=== PATIENT | male | born 1955 | race African-American/Black ===

== ENCOUNTER 2016-08-09 09:07 | Emergency (ER) | payer MEDICARE | END 2016-08-09 10:14 | disposition home or self-care (01) | LOC: D.ER 09:07 | DX: M25.561 Pain in right knee (principal); F17.200 Nicotine dependence, unspecified, uncomplicated ==

== ENCOUNTER 2016-09-26 22:01 | Emergency (ER) | payer MEDICARE ==
[2016-09-26 22:45] LABS: BASOPHILS 0.1 % (0-2); EOSINOPHILS 0.5 % (0-7); HEMATOCRIT 36.3 % (42.0-54.0); HEMOGLOBIN 12.1 g/dL (13.5-17.5); IMMATURE GRANULOCYTES 0.1 % (0-5); LYMPHOCYTES 24.2 % (15-50); MCH 29.9 pg (26.0-34.0); MCHC 33.3 g/dL (31.0-37.0); MCV 89.6 fL (80.0-100.0); MEAN PLATELET VOLUME 8.6 fL (7.4-10.4); MONOCYTES 9.5 % (2-11); NEUTROPHILS 65.6 % (40-80); PLATELET COUNT 153 10x3/uL (130-400); RBC 4.05 10x6/uL (4.20-6.10); RDW 16.1 % (11.5-14.5); WBC 7.5 10x3/uL (4.8-10.8)
[2016-09-26 22:59] LABS: ALBUMIN 3.2 g/dL (3.4-5.0); ALKALINE PHOSPHATASE 62 U/L (46-116); ALT (SGPT) 30 U/L (10-68); BILIRUBIN - TOTAL 0.45 mg/dL (0.2-1.3); CALC OSMOLALITY 269 mosm/kg (275-300); CALCIUM 8.7 mg/dL (8.5-10.1); CARBON DIOXIDE 31.4 mmol/L (21.0-32.0); CHLORIDE - SERUM 101 mmol/L (98-107); GLUCOSE 85 mg/dL (74-106); PROTEIN - SERUM 7.2 g/dL (6.4-8.2); SODIUM 136 mmol/L (136-145); UREA NITROGEN 11 mg/dL (7-18); eGFR NON AFRICAN AMERICAN 81 mL/min (90-120)
[2016-09-26 23:10] LABS: CHOL - HDL RATIO 1.9 ratio (2.3-4.9); CHOLESTEROL, TOTAL 139 mg/dL (0-200); CKMB 5.4 U/L (0.0-3.6); CREATINE KINASE 430 UL (21-232); HDL CHOLESTEROL 75 mg/dL (32-96); LDL CHOLESTEROL 56 mg/dL (0-100); LDL-HDL RATIO 0.7 ratio (1.5-3.5); TRIGLYCERIDE 44 mg/dL (30-200); TROPONIN-I < 0.017 ng/mL (0.000-0.060)
== END 2016-09-26 23:52 | disposition home or self-care (01) ==
LOC: D.ER 22:01
PROVIDERS: Emergency Medicine
DX: R07.89 Other chest pain (principal); M17.11 Unilateral primary osteoarthritis, right knee; F20.9 Schizophrenia, unspecified; Z91.14 Patient's other noncompliance with medication regimen; F17.200 Nicotine dependence, unspecified, uncomplicated; R00.0 Tachycardia, unspecified; I44.60 Unspecified fascicular block

== ENCOUNTER 2016-09-28 14:49 | Emergency (ER) | payer MEDICARE ==
[2016-09-28 15:26] LABS: BASOPHILS 0.2 % (0-2); HEMATOCRIT 38.2 % (42.0-54.0); HEMOGLOBIN 12.5 g/dL (13.5-17.5); IMMATURE GRANULOCYTES 0.2 % (0-5); LYMPHOCYTES 26.3 % (15-50); MCH 29.8 pg (26.0-34.0); MCHC 32.7 g/dL (31.0-37.0); MONOCYTES 11.9 % (2-11); NEUTROPHILS 60.4 % (40-80); PLATELET COUNT 174 10x3/uL (130-400); RDW 16.2 % (11.5-14.5); WBC 5.9 10x3/uL (4.8-10.8)
[2016-09-28 15:58] LABS: ALBUMIN 3.2 g/dL (3.4-5.0); ALKALINE PHOSPHATASE 60 U/L (46-116); ALT (SGPT) 31 U/L (10-68); BILIRUBIN - TOTAL 0.29 mg/dL (0.2-1.3); CALC OSMOLALITY 276 mosm/kg (275-300); CALCIUM 8.3 mg/dL (8.5-10.1); CARBON DIOXIDE 27.7 mmol/L (21.0-32.0); CHLORIDE - SERUM 103 mmol/L (98-107); CREATININE - SERUM 0.9 mg/dL (0.6-1.3); GLUCOSE 82 mg/dL (74-106); MAGNESIUM - SERUM 1.7 mg/dL (1.8-2.4); POTASSIUM - SERUM 3.9 mmol/L (3.5-5.1); PROTEIN - SERUM 6.8 g/dL (6.4-8.2); SODIUM 140 mmol/L (136-145); UREA NITROGEN 9 mg/dL (7-18); eGFR NON AFRICAN AMERICAN > 90 mL/min (90-120)
[2016-09-28 16:33] LABS: APPEARANCE CLEAR (CLEAR); BILIRUBIN NEGATIVE (NEGATIVE); COLOR YELLOW (YELLOW); GLUCOSE NEGATIVE (NEGATIVE); KETONE NEGATIVE (NEGATIVE); LEUKOCYTE ESTERASE NEGATIVE (NEGATIVE); NITRITE NEGATIVE (NEGATIVE); PROTEIN NEGATIVE (NEGATIVE); UROBILINOGEN NORMAL (NORMAL)
[2016-09-28 19:06] LABS: UDS - AMPHET NEGATIVE QUAL (NEGATIVE); UDS - BARB NEGATIVE QUAL (NEGATIVE); UDS - BENZO NEGATIVE QUAL (NEGATIVE); UDS - COCAINE NEGATIVE QUAL (NEGATIVE); UDS - METH NEGATIVE QUAL (NEGATIVE); UDS - OPIATE POSITIVE QUAL (NEGATIVE); UDS - PCP NEGATIVE QUAL (NEGATIVE); UDS - THC NEGATIVE QUAL (NEGATIVE)
== END 2016-09-28 20:20 | disposition home or self-care (01) ==
LOC: D.ER 14:49
PROVIDERS: Emergency Medicine; Nurse Practitioner Acute Care
DX: F10.10 Alcohol abuse, uncomplicated (principal); M17.11 Unilateral primary osteoarthritis, right knee; F17.200 Nicotine dependence, unspecified, uncomplicated; I45.10 Unspecified right bundle-branch block

== ENCOUNTER 2016-10-20 11:00 | Emergency (ER) | payer MEDICARE | END 2016-10-20 11:36 | disposition home or self-care (01) | LOC: D.ER 11:00 | DX: M25.561 Pain in right knee (principal); M76.9 Unspecified enthesopathy, lower limb, excluding foot; M25.461 Effusion, right knee; Z91.14 Patient's other noncompliance with medication regimen ==

== ENCOUNTER 2016-10-29 10:49 | Emergency (ER) | payer MEDICARE | END 2016-10-29 12:09 | disposition home or self-care (01) | LOC: D.ER 10:49 | DX: M25.561 Pain in right knee (principal); M25.461 Effusion, right knee; F17.200 Nicotine dependence, unspecified, uncomplicated ==

== ENCOUNTER 2016-11-23 13:14 | Emergency (ER) | payer MEDICARE | END 2016-11-23 14:39 | disposition left against medical advice (07) | LOC: D.ER 13:14 | DX: M25.561 Pain in right knee (principal) ==

== ENCOUNTER 2016-12-02 11:53 | Emergency (ER) | payer MEDICARE | END 2016-12-02 14:09 | disposition home or self-care (01) | LOC: D.ER 11:53 | DX: M25.561 Pain in right knee (principal); F17.200 Nicotine dependence, unspecified, uncomplicated ==

== ENCOUNTER 2016-12-23 08:50 | Emergency (ER) | payer MEDICARE | END 2016-12-23 10:15 | disposition home or self-care (01) | LOC: D.ER 08:50 | DX: G89.29 Other chronic pain (principal); Z76.0 Encounter for issue of repeat prescription ==

== ENCOUNTER 2017-09-14 11:52 | Emergency (ER) | payer MEDICARE | END 2017-09-14 12:47 | disposition home or self-care (01) | LOC: D.ER 11:52 | DX: M25.561 Pain in right knee (principal); M25.461 Effusion, right knee; F17.200 Nicotine dependence, unspecified, uncomplicated ==

== ENCOUNTER 2018-01-19 07:49 | Emergency (ER) | payer MEDICARE ==
[~2018-01-19] VITALS: Ht 172.7 cm; Wt 86.4 kg
[2018-01-19 08:04] VITALS: Ht 172.7 cm; Wt 86.4 kg
[2018-01-19] MEDS ORDERED: METOPROLOL TART25 MG PO (08:07)
[2018-01-19] MEDS ORDERED: NIFEDIPINE30 MG/BOT1 PO (08:07)
[2018-01-19] MEDS ORDERED: ZOLOFT50 MG PO (08:08)
[2018-01-19] MEDS ORDERED: RISPERDAL4 MG PO (08:08)
[2018-01-19] MEDS ORDERED: BENZTROPINE MESY2 MG PO (08:09)
[2018-01-19] MEDS ORDERED: BAYER CHEWABLE81 MG PO (08:09)
[2018-01-19] MEDS ORDERED: ULTRAM50 MG PO (08:09)
[2018-01-19] MEDS ORDERED: CATAPRES0.1 MG PO (08:09)
[2018-01-19] MEDS ORDERED: ZESTRIL40 MG PO (08:10)
[2018-01-19] MEDS ORDERED: HYDROCHLOROTHIA25 MG PO (08:10)
[2018-01-19] MEDS ORDERED: NORCO 10-325 TA1 TAB (08:11)
[2018-01-19] MEDS ORDERED: ACETAMINOPHEN500 M1 PO (09:53)
[2018-01-19] MEDS ORDERED: MEDROL DOSE PACK4 MG PO (09:53)
[2018-01-19] MEDS ORDERED: SKELAXIN800 MG PO (09:53)
[2018-01-19 10:18] VITALS: BP 160/088
== END 2018-01-19 10:19 | disposition home or self-care (01) ==
LOC: D.ER 07:49
DX: M25.561 Pain in right knee (principal); M25.461 Effusion, right knee; M17.11 Unilateral primary osteoarthritis, right knee; F17.200 Nicotine dependence, unspecified, uncomplicated; I10 Essential (primary) hypertension

== ENCOUNTER 2018-01-26 14:19 | Emergency (ER) | payer MEDICARE ==
[~2018-01-26] VITALS: Ht 172.7 cm; Wt 86.4 kg
[~2018-01-26 14:19] MED LIST: ACETAMINOPHEN500 M1 PO; BAYER CHEWABLE81 MG PO; BENZTROPINE MESY2 MG PO; CATAPRES0.1 MG PO; HYDROCHLOROTHIA25 MG PO; MEDROL DOSE PACK4 MG PO; METOPROLOL TART25 MG PO; NIFEDIPINE30 MG/BOT1 PO; NORCO 10-325 TA1 TAB; RISPERDAL4 MG PO; SKELAXIN800 MG PO; ULTRAM50 MG PO; ZESTRIL40 MG PO; ZOLOFT50 MG PO
[2018-01-26 14:37] VITALS: Ht 172.7 cm; Wt 86.4 kg
[2018-01-26 15:15] LABS: BASOPHILS 0.3 % (0-2); EOSINOPHILS 1.1 % (0-7); HEMATOCRIT 42.7 % (42.0-54.0); HEMOGLOBIN 14.6 g/dL (13.5-17.5); IMMATURE GRANULOCYTES 0.1 % (0-5); LYMPHOCYTES 24.1 % (15-50); MCH 31.6 pg (26.0-34.0); MCHC 34.2 g/dL (31.0-37.0); MCV 92.4 fL (80.0-100.0); MEAN PLATELET VOLUME 8.8 fL (7.4-10.4); MONOCYTES 10.9 % (2-11); NEUTROPHILS 63.5 % (40-80); PLATELET COUNT 156 10x3/uL (130-400); RBC 4.62 10x6/uL (4.20-6.10); RDW 14.5 % (11.5-14.5); WBC 7.9 10x3/uL (4.8-10.8)
[2018-01-26 15:16] LABS: UDS - AMPHET NEGATIVE QUAL (NEGATIVE); UDS - BARB NEGATIVE QUAL (NEGATIVE); UDS - BENZO NEGATIVE QUAL (NEGATIVE); UDS - COCAINE NEGATIVE QUAL (NEGATIVE); UDS - OPIATE NEGATIVE QUAL (NEGATIVE); UDS - PCP NEGATIVE QUAL (NEGATIVE); UDS - THC NEGATIVE QUAL (NEGATIVE)
[2018-01-26 15:33] LABS: APPEARANCE CLEAR (CLEAR); COLOR YELLOW (YELLOW); NITRITE NEGATIVE (NEGATIVE); SPECIFIC GRAVITY 1.025 (1.005-1.020)
[2018-01-26 15:34] LABS: BACTERIA FEW /hpf (NONE SEEN); BILIRUBIN NEGATIVE (NEGATIVE); EPITHELIAL CELLS 0-5 /hpf (0-5); GLUCOSE NEGATIVE (NEGATIVE); KETONE NEGATIVE (NEGATIVE); MUCUS <1+ /lpf (NONE SEEN); PROTEIN TRACE mg/dL (NEGATIVE); RED CELLS - URINE RARE /hpf (0-5)
[2018-01-26 15:39] LABS: ALBUMIN 3.4 g/dL (3.4-5.0); ANION GAP 10.9 mmol/L (8-16); BILIRUBIN - TOTAL 0.49 mg/dL (0.2-1.3); CARBON DIOXIDE 29.9 mmol/L (21.0-32.0); CREATININE - SERUM 1.2 mg/dL (0.6-1.3); POTASSIUM - SERUM 3.8 mmol/L (3.5-5.1); PROTEIN - SERUM 7.5 g/dL (6.4-8.2)
[2018-01-26 22:03] VITALS: BP 154/87
== END 2018-01-26 22:55 | disposition other institution (70) ==
LOC: D.ER 14:19
PROVIDERS: Family Medicine
DX: R44.1 Visual hallucinations (principal); R44.0 Auditory hallucinations; Z91.14 Patient's other noncompliance with medication regimen; I10 Essential (primary) hypertension; Z86.59 Personal history of other mental and behavioral disorders; F17.200 Nicotine dependence, unspecified, uncomplicated

== ENCOUNTER 2018-02-01 14:02 | Inpatient (IN) | payer MEDICARE ==
[~2018-02-01] VITALS: Ht 172.7 cm; Wt 88.0 kg
--- NOTE | ~2018-02-01 | CN ---
PATIENT NAME:RADHIKA JOSEPH MEDICAL RECORD: [id number] : 55 LOCATION:[id number] ADMIT DATE: 02/01/18 ACCOUNT: [id number] CONSULTING PHYSICIAN: CRISTIANO PEREZ MD REFERRING PHYSICIAN: LORI AGUILAR MD DATE OF CONSULTATION: 02/02/2018 IDENTIFYING DATA: The patient is 62 years old and he is admitted to the hospital on a voluntary basis. CHIEF COMPLAINT: Abdominal hernia. HISTORY OF PRESENT ILLNESS: The patient apparently felt bloated and was known to have a very large abdominal hernia, is not strangulated and he does not have an acute abdomen, but he does not want to have the surgery. I am not sure I understand exactly why, but it has something to do with him just wanting to go back to [facility] and not have the surgery. It does not make very much cohesive sense, but that is probably just consistent with his diagnosis. He denies that he would seek to harm himself or others and he is clearly calm and not agitated, but he does report hearing hallucinations. He says he is medication compliant and denies any recent use of drugs or alcohol. MENTAL STATUS EXAMINATION: The patient is awake, alert and oriented to person, place, time and situation. His mood is flat. His affect is generally congruent. Memory, concentration, and abstraction abilities are mildly impaired. He has active auditory hallucinations, but no thoughts of harming himself or others. ASSESSMENT: Schizophrenia. PLAN: The patient does not have a guardian or power of insurance defense attorney that is known. He says he does not have one and there is none known at this point. He was being treated for an acute psychotic break at [facility] prior to being sent here. I recommended he have the surgery. He has declined. He is able to explain the basic facts of the situation, sufficiently to say that there is certainly no grounds for trying to force him to have a surgery that is not emergent and so I would recommend that he be transferred back to [facility], maintained on current psych medications and scheduled for followup appointment as an outpatient with the surgeon and he may be more amenable to having the surgery once he is no longer in the middle of an acute psychotic episode. TRANSINT:[id number] Voice Confirmation ID: [id number] DOCUMENT ID: [id number] CRISTIANO PEREZ MD at 1341 CC: [id number] DICTATION DATE: 02/02/18 1542 MANAGER OF NETWORK: 02/02/18 1554 ADM IN [place] [id number] [facility], [facility]
[2018-02-01 14:48] LABS: BASOPHILS 0.4 % (0-2); EOSINOPHILS 1.2 % (0-7); HEMATOCRIT 43.1 % (42.0-54.0); HEMOGLOBIN 14.7 g/dL (13.5-17.5); IMMATURE GRANULOCYTES 0.1 % (0-5); LYMPHOCYTES 27.7 % (15-50); MCH 31.3 pg (26.0-34.0); MCHC 34.1 g/dL (31.0-37.0); MCV 91.7 fL (80.0-100.0); MEAN PLATELET VOLUME 9.8 fL (7.4-10.4); MONOCYTES 11.5 % (2-11); NEUTROPHILS 59.1 % (40-80); PLATELET COUNT 192 10x3/uL (130-400); RDW 13.7 % (11.5-14.5); WBC 7.5 10x3/uL (4.8-10.8)
[2018-02-01 15:08] LABS: ALBUMIN 3.1 g/dL (3.4-5.0); ANION GAP 5.3 mmol/L (8-16); BILIRUBIN - TOTAL 0.24 mg/dL (0.2-1.3); CALCIUM 9.1 mg/dL (8.5-10.1); CARBON DIOXIDE 35.7 mmol/L (21.0-32.0); CREATININE - SERUM 1.1 mg/dL (0.6-1.3); PROTEIN - SERUM 7.2 g/dL (6.4-8.2)
[2018-02-01 15:41] LABS: INR 1.99 (0.85-1.17)
[2018-02-01 22:57] VITALS: BP 187/99
[2018-02-01 23:34] VITALS: BP 187/99; BMI 29.5
[2018-02-02 05:41] VITALS: BP 157/71
[2018-02-02 09:20] VITALS: BP 118/74
[2018-02-02 09:58] LABS: BASOPHILS 0.2 % (0-2); EOSINOPHILS 1.2 % (0-7); HEMATOCRIT 45.9 % (42.0-54.0); HEMOGLOBIN 15.9 g/dL (13.5-17.5); IMMATURE GRANULOCYTES 0.1 % (0-5); LYMPHOCYTES 12.5 % (15-50); MCH 31.8 pg (26.0-34.0); MCHC 34.6 g/dL (31.0-37.0); MCV 91.8 fL (80.0-100.0); MEAN PLATELET VOLUME 9.3 fL (7.4-10.4); MONOCYTES 15.3 % (2-11); NEUTROPHILS 70.7 % (40-80); PLATELET COUNT 194 10x3/uL (130-400); RDW 13.9 % (11.5-14.5); WBC 8.4 10x3/uL (4.8-10.8)
[2018-02-02 10:07] LABS: CALC OSMOLALITY 269 mosm/kg (275-300); CARBON DIOXIDE 30.2 mmol/L (21.0-32.0); CHLORIDE - SERUM 100 mmol/L (98-107); CREATININE - SERUM 0.9 mg/dL (0.6-1.3); GLUCOSE 79 mg/dL (74-106); POTASSIUM - SERUM 4.8 mmol/L (3.5-5.1); SODIUM 135 mmol/L (136-145); UREA NITROGEN 14 mg/dL (7-18); eGFR NON AFRICAN AMERICAN > 90 mL/min (90-120)
[2018-02-02 12:30] VITALS: Ht 172.7 cm; Wt 88.0 kg
[2018-02-02 20:00] VITALS: BP 196/102
[2018-02-03] VITALS: BP 198/106
[2018-02-03 02:03] VITALS: BP 142/80
[2018-02-03 04:00] VITALS: BP 142/85
[2018-02-03 05:54] LABS: CALC OSMOLALITY 269 mosm/kg (275-300); CALCIUM 8.6 mg/dL (8.5-10.1); CARBON DIOXIDE 28.4 mmol/L (21.0-32.0); CHLORIDE - SERUM 102 mmol/L (98-107); CREATININE - SERUM 0.9 mg/dL (0.6-1.3); GLUCOSE 94 mg/dL (74-106); POTASSIUM - SERUM 4.3 mmol/L (3.5-5.1); SODIUM 135 mmol/L (136-145); UREA NITROGEN 13 mg/dL (7-18); eGFR NON AFRICAN AMERICAN > 90 mL/min (90-120)
[2018-02-03 06:21] LABS: BASOPHILS 0.4 % (0-2); HEMATOCRIT 41.8 % (42.0-54.0); HEMOGLOBIN 14.1 g/dL (13.5-17.5); IMMATURE GRANULOCYTES 0.4 % (0-5); MCH 30.7 pg (26.0-34.0); MCHC 33.7 g/dL (31.0-37.0); MCV 90.9 fL (80.0-100.0); MEAN PLATELET VOLUME 9.9 fL (7.4-10.4); MONOCYTES 16.8 % (2-11); NEUTROPHILS 55.4 % (40-80); PLATELET COUNT 194 10x3/uL (130-400); RDW 13.8 % (11.5-14.5)
[2018-02-03 06:28] LABS: WBC 5.6 10x3/uL (4.8-10.8)
[2018-02-03 11:46] VITALS: BP 176/100
== END 2018-02-03 19:25 | disposition short-term general hospital (02) | DRG 395 ==
LOC: D.ER 14:02 → D.MS 19:12
PROVIDERS: Emergency Medicine; Internal Medicine Nephrology
DX: K43.6 Other and unspecified ventral hernia with obstruction, without gangrene (principal); I10 Essential (primary) hypertension; F20.9 Schizophrenia, unspecified; F17.210 Nicotine dependence, cigarettes, uncomplicated

== ENCOUNTER 2018-02-17 18:19 | Emergency (ER) | payer MEDICARE ==
[~2018-02-17] VITALS: Ht 172.7 cm; Wt 86.4 kg
[2018-02-17 18:24] VITALS: Ht 172.7 cm; Wt 86.4 kg
[2018-02-17] MEDS ORDERED: ZOFRAN8 MG PO (21:02)
[2018-02-17] MEDS ORDERED: TORADOL10 MG PO (21:02)
[2018-02-17 22:10] VITALS: BP 167/104
== END 2018-02-17 22:11 | disposition home or self-care (01) ==
LOC: D.ER 18:19
DX: K43.9 Ventral hernia without obstruction or gangrene (principal); Z86.73 Personal history of transient ischemic attack (TIA), and cerebral infarction without residual deficits; I10 Essential (primary) hypertension; Z86.59 Personal history of other mental and behavioral disorders; F17.200 Nicotine dependence, unspecified, uncomplicated